=== PATIENT | female | born 1975 | race Caucasian/White ===

== ENCOUNTER 2018-05-08 09:44 | Emergency (ER) | payer MEDICAID ==
[~2018-05-08] VITALS: Ht 157.5 cm; Wt 81.2 kg
[~2018-05-08 09:44] MED LIST: KLONOPIN1 MG PO; METFORMIN HCL500 MG PO; NEURONTIN 300300 M1 PO; VIIBRYD40 MG PO
[2018-05-08] MEDS ORDERED: ASPIR 8181 MG PO (09:55)
[2018-05-08] MEDS ORDERED: NITROGLYCERIN0.4 MG SUBLING (09:55)
[2018-05-08] MEDS ORDERED: MINIPRESS1 MG PO (09:55)
[2018-05-08] MEDS ORDERED: ACCUNEB SO1.25 MG/1 INH (09:55)
[2018-05-08] MEDS ORDERED: AMBIEN 5 MG TABL5 M1 PO (09:56)
[2018-05-08] MEDS ORDERED: METOPROLOL SUCC50 MG PO (09:56)
[2018-05-08 11:03] VITALS: BP 161/82
== END 2018-05-08 11:04 | disposition home or self-care (01) ==
LOC: M.ERS 09:44
DX: M79.604 Pain in right leg (principal); E11.9 Type 2 diabetes mellitus without complications; F32.9 Major depressive disorder, single episode, unspecified; F41.9 Anxiety disorder, unspecified; I10 Essential (primary) hypertension; Z90.49 Acquired absence of other specified parts of digestive tract; F17.210 Nicotine dependence, cigarettes, uncomplicated; Z88.0 Allergy status to penicillin; Z88.8 Allergy status to other drugs, medicaments and biological substances

== ENCOUNTER → 2018-05-15 | Outpatient (CLI) | payer MEDICAID ==
[~2018-05-15] MED LIST changes: +ACCUNEB SO1.25 MG/1 INH; +AMBIEN 5 MG TABL5 M1 PO; +ASPIR 8181 MG PO; +METOPROLOL SUCC50 MG PO; +MINIPRESS1 MG PO; +NITROGLYCERIN0.4 MG SUBLING
== END ==
LOC: M.ULTRA 05-13 11:49
DX: M79.89 Other specified soft tissue disorders (principal); R10.9 Unspecified abdominal pain; R10.2 Pelvic and perineal pain; Z90.49 Acquired absence of other specified parts of digestive tract; Z90.710 Acquired absence of both cervix and uterus

== ENCOUNTER → 2018-12-31 | Outpatient (CLI) | payer MEDICAID | LOC: M.ULTRA 10:00 | DX: M79.89 Other specified soft tissue disorders (principal) ==

== ENCOUNTER 2021-10-17 14:29 | Emergency (ER) | payer MEDICAID ==
[~2021-10-17] VITALS: Ht 157.5 cm; Wt 90.7 kg
[2021-10-17] MEDS ORDERED: FLEXERIL PO (16:26)
[2021-10-17] MEDS ORDERED: HYDROCODON-ACE1 EAC7 PO (16:26)
[2021-10-17] MEDS ORDERED: PREDNISONE50 MG PO (16:26)
[2021-10-17 16:27] VITALS: BP 145/94
== END 2021-10-17 16:28 | disposition home or self-care (01) ==
LOC: M.ERS 14:29
DX: M54.50 Low back pain, unspecified (principal); M54.31 Sciatica, right side; E11.9 Type 2 diabetes mellitus without complications; F32.9 Major depressive disorder, single episode, unspecified; F41.9 Anxiety disorder, unspecified; F17.210 Nicotine dependence, cigarettes, uncomplicated; I10 Essential (primary) hypertension; Z90.49 Acquired absence of other specified parts of digestive tract; Z90.89 Acquired absence of other organs; Z90.711 Acquired absence of uterus with remaining cervical stump; Z79.899 Other long term (current) drug therapy; Z91.041 Radiographic dye allergy status; Z88.0 Allergy status to penicillin; Z88.5 Allergy status to narcotic agent; Z88.6 Allergy status to analgesic agent